=== PATIENT | female | born 1990 | race African-American/Black ===

== ENCOUNTER 2018-06-28 00:28 | Emergency (ER) | payer OTHER ==
[~2018-06-28] VITALS: Ht 142.2 cm; Wt 61.2 kg
[2018-06-28] MEDS ORDERED: TYLENOL EXTRA500 MG PO (00:41)
[2018-06-28] MEDS ORDERED: IBUPROFEN 200200 M1 PO (00:41)
[2018-06-28 01:25] LABS: HEMATOCRIT 31.7 % (37.0-47.0); MCH 24.6 pg (26.0-34.0); MCHC 31.5 g/dL (28.0-37.0); MCV 78.2 fL (80.0-100.0); RBC 4.06 mil/uL (4.20-5.00); RDW 17.4 % (10.5-14.5); WBC 14.9 thou/uL (4.0-11.0)
[2018-06-28 01:31] LABS: CALCIUM 8.8 mg/dL (8.5-10.1); CREATININE 0.7 mg/dL (0.6-1.0); POTASSIUM 3.7 mmol/L (3.5-5.1)
[2018-06-28] MEDS ORDERED: ULTRAM 50MG TAB50 MG PO (03:39)
[2018-06-28] MEDS ORDERED: CLEOCIN HCL150 MG PO (03:39)
[2018-06-28 04:08] VITALS: BP 135/70
== END 2018-06-28 04:15 | disposition home or self-care (01) ==
LOC: ER 00:28
PROVIDERS: Emergency Medicine
DX: K04.7 Periapical abscess without sinus (principal); R51 Headache; J45.909 Unspecified asthma, uncomplicated; Z86.2 Personal history of diseases of the blood and blood-forming organs and certain disorders involving the immune mechanism

== ENCOUNTER 2019-08-28 14:05 | Emergency (ER) | payer OTHER ==
[~2019-08-28] VITALS: Ht 142.2 cm; Wt 63.5 kg
[~2019-08-28 14:05] MED LIST: CLEOCIN HCL150 MG PO; IBUPROFEN 200200 M1 PO; TYLENOL EXTRA500 MG PO; ULTRAM 50MG TAB50 MG PO
[2019-08-28] MEDS ORDERED: CLEOCIN HCL150 MG PO (14:57)
[2019-08-28] MEDS ORDERED: IBUPROFEN 800800 M1 PO (14:57)
[2019-08-28] MEDS ORDERED: TRAMADOL 50 MG50 MG PO (14:57)
[2019-08-28 15:10] VITALS: BP 125/72
== END 2019-08-28 15:10 | disposition home or self-care (01) ==
LOC: ER 14:05
DX: K04.7 Periapical abscess without sinus (principal); J45.909 Unspecified asthma, uncomplicated; Z88.6 Allergy status to analgesic agent